=== PATIENT | female | born 1950 | race American Indian/Alaskan Native ===

== ENCOUNTER 2017-11-30 08:40 | Emergency (ER) | payer OTHER, MEDICARE ==
[2017-11-30 08:50] VITALS: BP 164/84
[2017-11-30] MEDS ORDERED: MORPHINE IM ONE (09:48)
[2017-11-30] MEDS ORDERED: ZOFRAN IM ONE (09:48)
--- NOTE | 2017-11-30 09:51 | Emergency Department Report ---
ED Neck Pain/Injury HPI - General Chief Complaint: Neck Pain/Injury Stated Complaint: NECK PAIN Time Seen by Provider: 11/30/17 09:43 Mode of arrival: Ambulatory Limitations: No Limitations - History of Present Illness Initial Comments: Patient is 67 years old female with history of hypertension. Patient presented to the ER complaining of neck pain that started yesterday all of a sudden. Patient denied any injury or fever or headache. Patient stated that she is having difficulty turning for back or to the right versus the left. She stated that she'll walk in a mcc and doing a lot of lifting. MD Complaint: neck pain -: Sudden Place: work Severity: moderate Severity scale (0 -10): 5 Quality: sharp Improves With: immobilization Worsens With: movement of neck Associated Symptoms: denies: headache, fever, numbness, tingling, weakness, vertigo, difficulty walking, swollen glands, difficulty swallowing, nausea, vomiting - Related Data Allergies Allergy/AdvReac Type Severity Reaction Status Date / Time No Known Allergies Allergy Unverified 11/30/17 08:47 ED Review of Systems ROS: Stated complaint: NECK PAIN Other details as noted in HPI Comment: All other systems reviewed and negative Constitutional: denies: chills, fever ENT: denies: throat pain Respiratory: denies: cough Cardiovascular: denies: chest pain, palpitations, dyspnea on exertion, orthopnea Gastrointestinal: denies: abdominal pain, nausea, vomiting ED Past Medical Hx - Past Medical History Previous Medical History?: Yes Hx Hypertension: Yes Hx Diabetes: Yes Additional medical history: HIGH CHOLESTEROL - Surgical History Past Surgical History?: No - Social History Smoking Status: Never Smoker Substance Use Type: Alcohol, Prescribed ED Physical Exam - General Limitations: No Limitations General appearance: alert, in no apparent distress - Head Head exam: Present: atraumatic, normocephalic, normal inspection - Eye Eye exam: Present: normal appearance, PERRL - ENT ENT exam: Present: normal exam, normal orophraynx - Neck Neck exam: Present: normal inspection, tenderness, other (significant for Muscle spasm). Absent: meningismus, full ROM (decreased range of motion), lymphadenopathy, thyromegaly - Respiratory Respiratory exam: Present: normal lung sounds bilaterally. Absent: respiratory distress, wheezes, rales, rhonchi, chest wall tenderness, accessory muscle use, decreased breath sounds, prolonged expiratory - Cardiovascular Cardiovascular Exam: Present: regular rate - GI/Abdominal GI/Abdominal exam: Present: soft, normal bowel sounds. Absent: distended, tenderness, guarding, rebound, rigid, organomegaly, mass, bruit, pulsatile mass - Extremities Exam Extremities exam: Present: normal inspection, full ROM, normal capillary refill - Back Exam Back exam: Present: normal inspection, full ROM. Absent: tenderness, CVA tenderness (R), CVA tenderness (L) - Neurological Exam Neurological exam: Present: alert, oriented X3, CN II-XII intact, normal gait, reflexes normal. Absent: abnormal gait, motor sensory deficit - Skin Skin exam: Present: warm, intact, normal color ED Course Vital Signs 11/30/17 08:47 Temperature 98.5 F Pulse Rate 64 Respiratory 18 Rate Blood Pressure 164/84 O2 Sat by Pulse 100 Oximetry ED Medical Decision Making - Radiology Data Radiology results: report reviewed Referring Physician: TIAGO HOLGUIN Patient Name: BAYRON CHEW Date of : 1950 Sex: Female Report Date: 2017-11-30 Report Status: Finalized Findings [facility] [address] [place] [address] Cat Scan Report Signed Patient: BAYRON CHEW MR#: [id number] : 1950 Acct:[id number] Age/Sex: 67 / F ADM Date: 11/30/17 Loc: ED Attending Dr: Ordering Physician: TIAGO HOLGUIN Date of Service: 11/30/17 Procedure(s): CT cervical spine wo con Accession Number(s): [id number] cc: TIAGO HOLGUIN CT CERVICAL SPINE WITHOUT CONTRAST INDICATION: Neck injury. COMPARISON: None similar. FINDINGS: Noncontrast axial, sagittal and coronal CT reconstructions through the cervical spine demonstrate slight right sphenoid sinus mucosal thickening anterolaterally. Clear mastoid air cells. Normal imaged posterior fossa. Few missing teeth incidentally noted. Intact craniocervical articulation, dens, predental space, prevertebral soft tissues and posterior elements. Multilevel cervical spine degenerative spurring with disc narrowing. Otherwise grossly preserved vertebral body heights and alignment. Assessment of spinal canal itself compromised from C5 inferiorly due to artifact from shoulder soft tissues. Normal imaged thyroid. Clear lung apices. On the obtained axial images: C2-C3 demonstrates right uncovertebral spurring. C3-C4 demonstrates moderate to severe disc narrowing and diffuse disc bulge/osteophyte complex with possible ventral cord flattening/effacement. Right more than left neural foraminal narrowing, axial image 63, series 3. C4-C5 demonstrate moderate to severe disc narrowing and mild diffuse disc bulge/osteophyte complex. Right more than left uncovertebral spurring. Mild bilateral neural foraminal narrowing. C5-C6 also demonstrates moderate disc narrowing and mild diffuse disc bulge/osteophyte complex. Mild uncovertebral spurring. C6-C7 demonstrates mild diffuse degenerative spurring. C7-T1 demonstrates right facet arthropathy. CONCLUSION: No acute cervical spine CT abnormality with multilevel degenerative changes and few other findings, as described. Thank you for the opportunity to participate in this patient's care. Transcribed By: RS Dictated By: BHARATH ORDOÑEZ MD Electronically Authenticated By: BHARATH ORDOÑEZ MD Signed Date/Time: 11/30/17 1019 DD/ 1007 TD/TT: 11/30/17 1019 - Medical Decision Making I informed the patient about how her CT cervical spine which show multiple degenerative disc disease with narrowing of the spinal canal. And I informed the patient that she will need to follow up with neurosurgeon in the next 2-3 days. Critical care attestation.: If time is entered above; I have spent that time in minutes in the direct care of this critically ill patient, excluding procedure time. ED Disposition Clinical Impression: Neck pain Disposition: DC-01 TO HOME OR SELFCARE Is pt being admited?: No Condition: Stable Instructions: Cervical Radiculopathy (ED), Cervical Sprain (ED), Cervical Disc Herniation (ED), Degenerative Disc Disease (ED) Referrals: TINA SANCHEZ NP-C [Primary Care Provider] - 3-5 Days
--- NOTE | 2017-11-30 10:25 | Cat Scan Report ---
CT CERVICAL SPINE WITHOUT CONTRAST INDICATION: Neck injury. COMPARISON: None similar. FINDINGS: Noncontrast axial, sagittal and coronal CT reconstructions through the cervical spine demonstrate slight right sphenoid sinus mucosal thickening anterolaterally. Clear mastoid air cells. Normal imaged posterior fossa. Few missing teeth incidentally noted. Intact craniocervical articulation, dens, predental space, prevertebral soft tissues and posterior elements. Multilevel cervical spine degenerative spurring with disc narrowing. Otherwise grossly preserved vertebral body heights and alignment. Assessment of spinal canal itself compromised from C5 inferiorly due to artifact from shoulder soft tissues. Normal imaged thyroid. Clear lung apices. On the obtained axial images: C2-C3 demonstrates right uncovertebral spurring. C3-C4 demonstrates moderate to severe disc narrowing and diffuse disc bulge/osteophyte complex with possible ventral cord flattening/effacement. Right more than left neural foraminal narrowing, axial image 63, series 3. C4-C5 demonstrate moderate to severe disc narrowing and mild diffuse disc bulge/osteophyte complex. Right more than left uncovertebral spurring. Mild bilateral neural foraminal narrowing. C5-C6 also demonstrates moderate disc narrowing and mild diffuse disc bulge/osteophyte complex. Mild uncovertebral spurring. C6-C7 demonstrates mild diffuse degenerative spurring. C7-T1 demonstrates right facet arthropathy. CONCLUSION: No acute cervical spine CT abnormality with multilevel degenerative changes and few other findings, as described. Thank you for the opportunity to participate in this patient's care.
== END 2017-11-30 10:55 | disposition home or self-care (01) ==
LOC: ED 08:40
DX: M54.2 Cervicalgia (principal); I10 Essential (primary) hypertension; E11.9 Type 2 diabetes mellitus without complications; E78.00 Pure hypercholesterolemia, unspecified
CPT/HCPCS: 72125; 96372; 99283; J2270; J2405

== ENCOUNTER 2020-07-01 06:13 | Day surgery (SDC) | payer MEDICARE ==
[2020-07-01] MEDS ORDERED: ASPIRIN EC 325 MG TAB PO ONE (07:09)
[2020-07-01] MEDS: SODIUM CHLORIDE 0.9% 500 ML 500 ML IV SCH ×2 (07:29→09:01)
[2020-07-01] MEDS ORDERED: HEPARIN/NS 5000 UNIT/500ML 1,000 ML IR ONE (08:15)
[2020-07-01] MEDS ORDERED: NITROGLYCERIN SYRINGE 0 ML ONE (08:16)
[2020-07-01] MEDS: LIDOCAINE (2%) 20 MG/1 ML VIAL 20 ML MDV INFILTRATI ONE ×2 (09:00→09:22)
[2020-07-01] MEDS: MIDAZOLAM 2 MG/2 ML INJ ONE ×2 (09:00→09:16)
[2020-07-01] MEDS: fentaNYL 100 MCG/2 ML INJ ONE ×2 (09:00→09:16)
[2020-07-01] MEDS: VERAPAMIL 5 MG/2 ML INJ ONE ×3 (09:03→09:23)
[2020-07-01] MEDS: HEPARIN 10,000 UNITS/10 ML VIAL ONE ×2 (09:22→09:23)
--- NOTE | 2020-07-01 10:07 | Cardiac Catherization Report ---
CARDIAC CATHETERIZATION REPORT INDICATION FOR PROCEDURE: The patient is a 69-year-old -[place] female with history of hypertension, hyperlipidemia, diabetes mellitus, was noted to have abnormal stress nuclear imaging with evidence of medium sized partially reversible anterior and anteroapical defect with normal ejection fraction. Because of this abnormality, the patient is scheduled for cardiac catheterization for definitive diagnosis and treatment. The patient is aware of the procedure, potential complications and alternatives of therapy available. DESCRIPTION OF PROCEDURE: The patient was brought to the catheterization laboratory in a fasting condition. The patient was evaluated for moderate sedation and was felt to be appropriate candidate for moderate sedation and received IV Versed and fentanyl starting at 9:16 a.m. Subsequently, the patient was prepared in standard fashion using sterile drapes. Local anesthesia was given in the right wrist area. Right radial artery puncture was made using 21-gauge arterial puncture needle. A 5[place] slender sheath was introduced. The patient received 5 mg of intra-arterial verapamil and 3000 units of intravenous heparin. Left ventriculogram was performed using 5[place] multipurpose catheter, 5[place] TIG catheter was used for obtaining the angiograms of the left coronary artery and JR4 catheter was used to obtain the angiograms of the right coronary artery. At the end of the procedure, catheter and sheath were removed over the wire. The patient tolerated the procedure well. The patient was monitored throughout the procedure with pulse oximetry, hemodynamic monitoring and EKG monitoring. The patient at the end of the procedure is breathing normally, communicating normally and no focal deficits noted. Hemostasis was achieved in the right radial artery using radial band. The patient was transferred to the room in stable condition. No complications were noted during the procedure. The patient's moderate sedation monitoring started at 9:16 a.m. and ended at 9:38 a.m. Following findings were noted. HEMODYNAMICS: 1. Opening aortic pressure 140/80. Left ventricular pressure 140/18. No gradient across the aortic valve. Estimated ejection fraction 65%. 2. Left ventriculogram done in WONG projection showed normal sized left ventricle with normal contractility. End-diastolic and systolic volumes are normal. Mitral regurgitation could not be evaluated because of limited amount of dye injected. 3. Right coronary artery codominant artery arises normally from right coronary cusp. This is tortuous, but angiographically smooth and normal. 4. Left coronary artery arises normally from left coronary cusp. Left main is long, smooth and normal. LAD, which curves around the apex is very tortuous, similarly its diagonal branches are also tortuous. Circumflex artery and its branch are tortuous, but left main, LAD and its branches and large circumflex artery and its branch are angiographically smooth and normal. FINAL IMPRESSION: 1. Normal sized left ventricle with excellent contractility. End-diastolic pressure upper limits of normal. 2. Normal coronary anatomy, but arteries are very tortuous. 3. Procedure was uncomplicated. 4. Right radial artery was used for access. The patient was explained of the findings noted on the catheterization. She understands. Will be continued on risk factor modification. JOB# [id number] MADELINE/JULIAN
[2020-07-01 12:35] VITALS: BP 129/61
--- NOTE | 2020-07-01 14:34 | Short Stay Summary ---
Short Stay Documentation Date of service: 07/01/20 - History H&P: obtained from office - Allergies and Medications Current Medications: Allergies No Known Allergies Allergy (Unverified 11/30/17 08:47) Home Medications Medication Instructions Recorded Confirmed Last Taken Type Cholecalciferol (Vitamin D3) 1,250 mcg PO DAILY 07/01/20 07/01/20 Unknown History [Weekly-D] Fenofibrate [Tricor] 145 mg PO QDAY 07/01/20 07/01/20 06/30/20 History 1 tab Losartan/Hydrochlorothiazide 25 - 100 each PO DAILY 07/01/20 07/01/20 06/30/20 History [Losartan-Hctz 50-12.5 mg Tab] 1 tab Simvastatin 20 mg PO DAILY 07/01/20 07/01/20 06/30/20 History 1 tab Valacyclovir HCl [Valacyclovir] 500 mg PO DAILY 07/01/20 07/01/20 06/24/20 History 1 tab amLODIPine [Norvasc] 10 mg PO DAILY 07/01/20 07/01/20 06/30/20 History 1 tab metFORMIN [Glucophage] 500 mg PO QDAY 07/01/20 07/01/20 06/24/20 History 1 tab - Brief post op/procedure progress note Date of procedure: 07/01/20 Pre-op diagnosis: abnormal stress test Post-op diagnosis: same Procedure: [facility] - see dictated cath report - Disposition Condition at discharge: Good Disposition: DC-01 TO HOME OR SELFCARE - Discharge Diagnoses (1) Normal coronary angiogram Status: Chronic Short Stay Discharge Plan Activity: advance as tolerated Diet: low fat, low cholesterol, low salt Wound: open to air, keep clean and dry, per your surgeon's advice Follow up with: TINA SANCHEZ NP-C [Primary Care Provider] - 7 Days COLIN ROSS MD [Staff Physician] - 7 Days Forms: CardCath PCI D/C Instructions
== END 2020-07-01 14:05 | disposition home or self-care (01) ==
LOC: CATHLABREC 06:13
PROVIDERS: ATTEND Internal Medicine
DX: R94.39 Abnormal result of other cardiovascular function study (principal); I10 Essential (primary) hypertension; M19.90 Unspecified osteoarthritis, unspecified site; E78.49 Other hyperlipidemia; E11.9 Type 2 diabetes mellitus without complications; E78.5 Hyperlipidemia, unspecified; E66.9 Obesity, unspecified; Z72.89 Other problems related to lifestyle; Z98.890 Other specified postprocedural states; Z83.3 Family history of diabetes mellitus; Z79.899 Other long term (current) drug therapy; Z79.84 Long term (current) use of oral hypoglycemic drugs; Z68.33 Body mass index [BMI] 33.0-33.9, adult
CPT/HCPCS: 82962; 93005; 93458; 99156; C1894; J1644; J2250; J3010; J7040; Q9967

== ENCOUNTER 2021-10-17 20:23 | Emergency (ER) | payer MEDICARE ==
[2021-10-17 20:52] VITALS: BP 165/75
== END 2021-10-18 03:05 | disposition left against medical advice (07) ==
LOC: ED 20:23
DX: Z00.00 Encounter for general adult medical examination without abnormal findings (principal); Z53.21 Procedure and treatment not carried out due to patient leaving prior to being seen by health care provider